=== PATIENT | female | born 1985 | race Caucasian/White ===

== ENCOUNTER 2017-10-06 14:26 | Emergency (ER) | payer MEDICAID, OTHER ==
[~2017-10-06] VITALS: Ht 162.6 cm; Wt 49.0 kg
[2017-10-06 17:35] VITALS: BP 101/58
== END 2017-10-06 18:15 | disposition home or self-care (01) ==
LOC: ER 14:26
DX: K64.9 Unspecified hemorrhoids (principal); E07.89 Other specified disorders of thyroid